=== PATIENT | male | born 1985 ===

== ENCOUNTER 2018-08-18 06:03 | Outpatient (RCR) | payer OTHER ==
[~2018-08-18] VITALS: Ht 175.3 cm; Wt 87.1 kg
[2018-08-18] MEDS ORDERED: Midazolam 2mg/2ml Inj ONE (06:04)
[2018-08-18] MEDS ORDERED: NS 500ML ONE (06:04)
[2018-08-18] MEDS ORDERED: Ketorolac 60mg Inj IM ONE (06:04)
[2018-08-18] MEDS ORDERED: Methohexital Sodium Syr 100mg/10ml IVP ONE (06:04)
[2018-08-18] MEDS ORDERED: Succinylcholine 20mg/ml 10ml vial ONE (06:04)
[2018-08-18 06:43] VITALS: BP 111/67
[2018-08-18 08:20] VITALS: BP 111/67
[2018-08-18 08:35] VITALS: BP 113/69
[2018-08-18] MEDS ORDERED: Ketorolac 30mg Inj IV ONE (08:35)
[2018-08-18 08:40] VITALS: BP 129/79
[2018-08-18 08:45] VITALS: BP 109/66
[2018-08-18 08:50] VITALS: BP 114/62
[2018-08-20] MEDS ORDERED: Midazolam 2mg/2ml Inj ONE (06:00)
[2018-08-20] MEDS ORDERED: Succinylcholine 20mg/ml 10ml vial ONE (06:00)
[2018-08-20] MEDS ORDERED: Methohexital Sodium Syr 100mg/10ml IVP ONE (06:00)
[2018-08-20] MEDS ORDERED: Ketorolac 60mg Inj IM ONE (06:00)
[2018-08-20] MEDS ORDERED: NS 500ML ONE (06:00)
[2018-08-20 10:58] VITALS: BP 113/70
[2018-08-20 11:10] VITALS: BP 115/62
[2018-08-20 11:15] VITALS: BP 123/80
[2018-08-20 11:20] VITALS: BP 113/63
[2018-08-20 11:25] VITALS: BP 117/62
[2018-08-22] MEDS ORDERED: Ketorolac 60mg Inj IM ONE (07:00)
[2018-08-22] MEDS ORDERED: NS 500ML ONE (07:00)
[2018-08-22] MEDS ORDERED: Methohexital Sodium Syr 100mg/10ml IVP ONE (07:00)
[2018-08-22] MEDS ORDERED: Succinylcholine 20mg/ml 10ml vial ONE (07:00)
[2018-08-22] MEDS ORDERED: Midazolam 2mg/2ml Inj ONE (07:00)
[2018-08-22 08:09] VITALS: BP 111/72
[2018-08-22 08:25] VITALS: BP 119/69
[2018-08-22 08:30] VITALS: BP 135/85
[2018-08-22 08:35] VITALS: BP 118/67
[2018-08-22 08:40] VITALS: BP 125/67
[2018-08-25 08:15] VITALS: BP 114/73
[2018-08-25 08:30] VITALS: BP 131/61
[2018-08-25 08:35] VITALS: BP 116/75
[2018-08-25 08:40] VITALS: BP 118/70
[2018-08-25 08:45] VITALS: BP 114/65
[2018-08-25] MEDS ORDERED: Midazolam 2mg/2ml Inj ONE (09:00)
[2018-08-25] MEDS ORDERED: Ketorolac 60mg Inj IM ONE (09:00)
[2018-08-25] MEDS ORDERED: Succinylcholine 20mg/ml 10ml vial ONE (09:00)
[2018-08-25] MEDS ORDERED: Methohexital Sodium Syr 100mg/10ml IVP ONE (09:00)
[2018-08-25] MEDS ORDERED: NS 500ML ONE (09:00)
[2018-08-27] MEDS ORDERED: Methohexital Sodium Syr 100mg/10ml IVP ONE (08:00)
[2018-08-27] MEDS ORDERED: Succinylcholine 20mg/ml 10ml vial ONE (08:00)
[2018-08-27] MEDS ORDERED: Ketorolac 60mg Inj IM ONE (08:00)
[2018-08-27] MEDS ORDERED: NS 500ML ONE (08:00)
[2018-08-27] MEDS ORDERED: Midazolam 2mg/2ml Inj ONE (08:00)
[2018-08-27 08:17] VITALS: BP 110/78
[2018-08-27 08:30] VITALS: BP 117/63
[2018-08-27 08:35] VITALS: BP 131/77
[2018-08-27 08:40] VITALS: BP 100/58
[2018-08-27 08:45] VITALS: BP 103/53
[2018-08-29 08:08] VITALS: BP 116/74
[2018-08-29 08:20] VITALS: BP 124/67
[2018-08-29 08:25] VITALS: BP 133/37
[2018-08-29 08:30] VITALS: BP 162/43
[2018-08-29 08:35] VITALS: BP 108/61
[2018-08-29] MEDS ORDERED: NS 500ML ONE (09:00)
[2018-08-29] MEDS ORDERED: Succinylcholine 20mg/ml 10ml vial ONE (09:00)
[2018-08-29] MEDS ORDERED: Ketorolac 60mg Inj IM ONE (09:00)
[2018-08-29] MEDS ORDERED: Midazolam 2mg/2ml Inj ONE (09:00)
[2018-08-29] MEDS ORDERED: Methohexital Sodium Syr 100mg/10ml IVP ONE (09:00)
== END 2018-08-31 | disposition home or self-care (01) ==
LOC: ECT 06:03
DX: F33.2 Major depressive disorder, recurrent severe without psychotic features (principal); F34.1 Dysthymic disorder
CPT/HCPCS: 90870; J0330; J2250; J2405; J7040

== ENCOUNTER 2018-09-01 08:00 | Outpatient (RCR) | payer OTHER ==
[~2018-09-01] VITALS: Ht 175.3 cm; Wt 87.1 kg
[~2018-09-01 08:00] MED LIST: Ketorolac 60mg Inj IM ONE; Methohexital Sodium Syr 100mg/10ml IVP ONE; Midazolam 2mg/2ml Inj ONE; NS 500ML ONE; Succinylcholine 20mg/ml 10ml vial ONE
[2018-09-01 09:29] VITALS: BP 105/72
[2018-09-01 09:43] VITALS: BP 118/68
[2018-09-01 09:48] VITALS: BP 117/73
[2018-09-01 09:53] VITALS: BP 127/89
[2018-09-01 09:58] VITALS: BP 95/55
[2018-09-03] MEDS ORDERED: Midazolam 2mg/2ml Inj ONE (07:00)
[2018-09-03] MEDS ORDERED: Ketorolac 30mg Inj ONE (07:00)
[2018-09-03] MEDS ORDERED: NS 500ML ONE (07:00)
[2018-09-03] MEDS ORDERED: Succinylcholine 20mg/ml 10ml vial ONE (07:00)
[2018-09-03] MEDS ORDERED: Methohexital Sodium Syr 100mg/10ml IVP ONE (07:00)
[2018-09-03 08:18] VITALS: BP 108/74
[2018-09-03 08:35] VITALS: BP 123/71
[2018-09-03 08:40] VITALS: BP 131/75
[2018-09-03 08:45] VITALS: BP 113/73
[2018-09-03 08:50] VITALS: BP 123/85
[2018-09-05 07:42] VITALS: BP 109/72
[2018-09-05 07:55] VITALS: BP 126/78
[2018-09-05 08:00] VITALS: BP 144/107
[2018-09-05] MEDS ORDERED: Methohexital Sodium Syr 100mg/10ml IVP ONE (08:00)
[2018-09-05] MEDS ORDERED: Ketorolac 60mg Inj IM ONE (08:00)
[2018-09-05] MEDS ORDERED: Midazolam 2mg/2ml Inj ONE (08:00)
[2018-09-05] MEDS ORDERED: Succinylcholine 20mg/ml 10ml vial ONE (08:00)
[2018-09-05] MEDS ORDERED: NS 500ML ONE (08:00)
[2018-09-05 08:05] VITALS: BP 96/63
[2018-09-05 08:10] VITALS: BP 113/49
[2018-09-08] MEDS ORDERED: NS 500ML ONE (06:00)
[2018-09-08] MEDS ORDERED: Ketamine 500mg Inj ONE (06:00)
[2018-09-08] MEDS ORDERED: Succinylcholine 20mg/ml 10ml vial ONE (06:00)
[2018-09-08] MEDS ORDERED: Ketorolac 30mg Inj ONE (06:00)
[2018-09-08] MEDS ORDERED: Midazolam 2mg/2ml Inj ONE (06:00)
[2018-09-08 07:53] VITALS: BP 117/75
[2018-09-08 08:05] VITALS: BP 130/67
[2018-09-08 08:10] VITALS: BP 136/75
[2018-09-08 08:15] VITALS: BP 138/75
[2018-09-08 08:20] VITALS: BP 134/75
[2018-09-10] MEDS ORDERED: Ketamine 500mg Inj ONE (06:00)
[2018-09-10] MEDS ORDERED: NS 500ML ONE (06:00)
[2018-09-10] MEDS ORDERED: Midazolam 2mg/2ml Inj ONE (06:00)
[2018-09-10] MEDS ORDERED: Succinylcholine 20mg/ml 10ml vial ONE (06:00)
[2018-09-10] MEDS ORDERED: Ketorolac 30mg Inj ONE (06:00)
[2018-09-10 08:54] VITALS: BP 120/75
[2018-09-10] MEDS ORDERED: Midazolam 2mg/2ml Inj IVP PRN ×2 (09:09)
[2018-09-10 09:10] VITALS: BP 126/71
[2018-09-10 09:15] VITALS: BP 141/98
[2018-09-10 09:20] VITALS: BP 148/110
[2018-09-10 09:25] VITALS: BP 130/45
[2018-09-12] MEDS ORDERED: Succinylcholine 20mg/ml 10ml vial ONE (08:00)
[2018-09-12] MEDS ORDERED: NS 500ML ONE (08:00)
[2018-09-12] MEDS ORDERED: Midazolam 2mg/2ml Inj ONE (08:00)
[2018-09-12] MEDS ORDERED: Ketamine 500mg Inj ONE (08:00)
[2018-09-12] MEDS ORDERED: Ketorolac 60mg Inj IM ONE (08:00)
[2018-09-12 10:16] VITALS: BP 118/78
[2018-09-12 10:29] VITALS: BP 127/74
[2018-09-12 10:34] VITALS: BP 130/73
[2018-09-12 10:39] VITALS: BP 130/69
[2018-09-12 10:44] VITALS: BP 130/67
[2018-09-19] MEDS ORDERED: Ketorolac 30mg Inj ONE (06:00)
[2018-09-19] MEDS ORDERED: NS 500ML ONE (06:00)
[2018-09-19] MEDS ORDERED: Succinylcholine 20mg/ml 10ml vial ONE (06:00)
[2018-09-19] MEDS ORDERED: Ketamine 500mg Inj ONE (06:00)
[2018-09-19] MEDS ORDERED: Midazolam 2mg/2ml Inj ONE (06:00)
[2018-09-19 09:49] VITALS: BP 120/76
[2018-09-19] MEDS ORDERED: Midazolam 2mg/2ml Inj IVP PRN (10:02)
[2018-09-19 10:05] VITALS: BP 129/71
[2018-09-19 10:10] VITALS: BP 149/91
[2018-09-19 10:15] VITALS: BP 117/85
[2018-09-19 10:20] VITALS: BP 123/67
[2018-09-22] MEDS ORDERED: Ketamine 500mg Inj ONE (08:00)
[2018-09-22] MEDS ORDERED: Ketorolac 60mg Inj IM ONE (08:00)
[2018-09-22] MEDS ORDERED: NS 500ML ONE (08:00)
[2018-09-22] MEDS ORDERED: Succinylcholine 20mg/ml 10ml vial ONE (08:00)
[2018-09-22] MEDS ORDERED: Midazolam 2mg/2ml Inj ONE (08:00)
[2018-09-22 08:13] VITALS: BP 120/80
[2018-09-22 08:25] VITALS: BP 129/65
[2018-09-22] MEDS ORDERED: Midazolam 2mg/2ml Inj IVP PRN (08:25)
[2018-09-22 08:30] VITALS: BP 122/67
[2018-09-22 08:35] VITALS: BP 126/58
[2018-09-22 08:40] VITALS: BP 123/63
== END 2018-10-01 | disposition home or self-care (01) ==
LOC: ECT 08:00
DX: F33.2 Major depressive disorder, recurrent severe without psychotic features (principal)
CPT/HCPCS: 90870; J0330; J1885; J2250; J2405; J3490; J7040